=== PATIENT | male | born 1985 | race Hispanic/Latino ===

== ENCOUNTER 2018-01-04 10:00 | Emergency (ER) | payer SELFPAY ==
[2018-01-04] MEDS ORDERED: ACETAMINOPHEN 325 MG TAB ONE (10:19)
[2018-01-04] MEDS ORDERED: IPRATROPIUM/ALBUTEROL SULFATE 3 ML SOLUTION IH ONE (10:34)
[2018-01-04 10:59] LABS: RAPID GROUP A STREP NEGATIVE (NEGATIVE)
== END 2018-01-04 11:14 | disposition home or self-care (01) ==
LOC: EDH 10:00
DX: J18.8 Other pneumonia, unspecified organism (principal); Z72.0 Tobacco use
CPT/HCPCS: 71046; 87804; 87880; 94640

== ENCOUNTER 2018-03-13 18:52 | Emergency (ER) | payer OTHER ==
[2018-03-13 20:13] LABS: BILIRUBIN,URINE Negative (NEGATIVE); COLOR,URINE Yellow (YELLOW); GLUCOSE, URINE (UA) 250 mg/dL (NEGATIVE); KETONES,URINE Trace mg/dL (NEGATIVE); LEUKOCYTE ESTERASE ,URINE Negative (NEGATIVE); NITRATE,URINE Negative (NEGATIVE); OCCULT BLOOD,URINE Negative (NEGATIVE); PROTEIN,URINE Negative (NEGATIVE)
[2018-03-13 20:14] LABS: APPEARANCE,URINE CLEAR (CLEAR)
[2018-03-13] MEDS ORDERED: KETOROLAC TROMETHAMINE 30MG/ML ONE (20:17)
[2018-03-13 20:24] LABS: BACTERIA,URINE Rare /HPF (None Seen); MUCUS,URINE Few LPF (None Seen); RBC,URINE 0-1 /HPF (0-1); SQUAMOUS EPITHELIAL CELL,UR Rare /HPF (0-2); WBC,URINE 0-1 /HPF (0-1)
[2018-03-13 20:40] LABS: BASOPHILS % (AUTO) 0.7 % (0.0-5.0); EOSINOPHILS % (AUTO) 0.7 % (0.0-8.0); HEMATOCRIT 47.5 % (42-54); LYMPHOCYTES % (AUTO) 26.4 % (21.0-51.0); MEAN CORPUSCULAR HEMOGLOBIN 31.9 pg (27.0-33.0); MEAN CORPUSCULAR HGB CONC 35.4 g/dL (32.0-36.0); MEAN CORPUSCULAR VOLUME 90.1 fL (79-99); NEUTROPHILS % (AUTO) 63.2 % (40.0-77.0); PLATELET COUNT (AUTO) 385 K/uL (130-400); RED BLOOD CELL COUNT(AUTO) 5.27 MIL/uL (4.50-6.20); RED CELL DISTRIBUTION WIDTH 13.3 % (11.0-15.5); WHITE BLOOD COUNT (AUTO) 9.8 K/uL (4.8-10.8)
[2018-03-13 20:55] LABS: POTASSIUM 3.8 mmol/L (3.5-5.1)
[2018-03-13 21:00] LABS: ALBUMIN 3.7 g/dL (3.5-5.0); BILIRUBIN,TOTAL 0.4 mg/dL (0.2-1.0)
[2018-03-13 21:15] LABS: TOTAL PROTEIN, SERUM 7.4 g/dL (6.0-8.3)
== END 2018-03-13 22:02 | disposition home or self-care (01) ==
LOC: EDH 18:52
DX: R10.32 Left lower quadrant pain (principal); K59.00 Constipation, unspecified; K21.9 Gastro-esophageal reflux disease without esophagitis
CPT/HCPCS: 36415; 74018; 80053; 81001; 85025; 96374; 99284; J1885

== ENCOUNTER 2018-10-18 20:24 | Emergency (ER) | payer OTHER ==
[2018-10-18 21:28] LABS: BASOPHILS % (AUTO) 0.4 % (0.0-5.0); EOSINOPHILS % (AUTO) 0.1 % (0.0-8.0); HEMATOCRIT 46.5 % (42-54); LYMPHOCYTES % (AUTO) 17.6 % (21.0-51.0); MEAN CORPUSCULAR HEMOGLOBIN 30.8 pg (27.0-33.0); MEAN CORPUSCULAR HGB CONC 34.5 g/dL (32.0-36.0); MEAN CORPUSCULAR VOLUME 89.2 fL (79-99); MONOCYTES % (AUTO) 5.8 % (3.0-13.0); NEUTROPHILS % (AUTO) 76.1 % (40.0-77.0); PLATELET COUNT (AUTO) 359 K/uL (130-400); RED BLOOD CELL COUNT(AUTO) 5.22 MIL/uL (4.50-6.20); RED CELL DISTRIBUTION WIDTH 13.4 % (11.0-15.5); WHITE BLOOD COUNT (AUTO) 12.1 K/uL (4.8-10.8)
[2018-10-18 21:40] LABS: CARBON DIOXIDE 27 mmol/L (21-32); CHLORIDE 103 mmol/L (101-111); CREATININE 1.2 mg/dL (0.5-1.5); GLOMERULAR FILTR. RATE CALC 74 mL/min (>60); GLUCOSE,RANDOM 105 mg/dL (70-105); POTASSIUM 3.6 mmol/L (3.5-5.1); SODIUM SERUM 139 mmol/L (136-145); UREA NITROGEN, BLOOD 13 mg/dL (7-18)
[2018-10-18 21:44] LABS: ALANINE AMINOTRANSFERASE 48 U/L (12-78); ALBUMIN 4.2 g/dL (3.5-5.0); ALCOHOL, BLOOD < 3 mg/dL (0-10); AMYLASE 43 U/L (25-115); ASPARTATE AMINOTRANSFERASE 25 U/L (10-37); BILIRUBIN,TOTAL 0.3 mg/dL (0.2-1.0); CREATINE KINASE, TOTAL 217 U/L (21-232); LIPASE 87 U/L (114-286); TOTAL PROTEIN, SERUM 7.7 g/dL (6.0-8.3)
[2018-10-18 21:46] LABS: INR 0.96 (0.85-1.15); PARTIAL THROMBOPLASTIN TIME 29.6 SEC (26.3-35.5); PROTHROMBIN TIME 10.1 SEC (9.6-11.6)
[2018-10-18] MEDS ORDERED: LEVOFLOXACIN 500 MG TABLET ONE (22:03)
[2018-10-18] MEDS ORDERED: METRONIDAZOLE 500MG/100ML BAG 100 ML ONE (22:03)
[2018-10-18] MEDS ORDERED: KETOROLAC TROMETHAMINE 30MG/ML ONE (22:03)
[2018-10-18] MEDS ORDERED: SODIUM CHLORIDE 0.9% 1000ML 1,000 ML IV ONE (22:04)
[2018-10-18 22:10] LABS: APPEARANCE,URINE Clear (CLEAR); BILIRUBIN,URINE Negative (NEGATIVE); COLOR,URINE Yellow (YELLOW); GLUCOSE, URINE (UA) Negative (NEGATIVE); KETONES,URINE Negative (NEGATIVE); LEUKOCYTE ESTERASE ,URINE Negative (NEGATIVE); NITRATE,URINE Negative (NEGATIVE); OCCULT BLOOD,URINE Negative (NEGATIVE); PH,URINE 6.5 (5.0-8.0); PROTEIN,URINE Negative (NEGATIVE); UROBILINOGEN,URINE 0.2 mg/dL (0.2-1.0)
[2018-10-18 22:17] LABS: AMPHET/METH SCREEN,URINE NEGATIVE (NEGATIVE); BARBITURATE SCREEN, URINE NEGATIVE (NEGATIVE); BENZODIAZEPINES SCREEN,URINE POSITIVE (NEGATIVE); CANNABINOID SCREEN,URINE NEGATIVE (NEGATIVE); COCAINE SCREEN,URINE POSITIVE (NEGATIVE); OPIATE SCREEN,URINE NEGATIVE (NEGATIVE); PHENCYCLIDINE SCREEN,URINE NEGATIVE (NEGATIVE)
[2018-10-18] MEDS ORDERED: METRONIDAZOLE 500 MG TABLET ONE (23:26)
== END 2018-10-18 23:39 | disposition home or self-care (01) ==
LOC: EDH 20:24
DX: K57.32 Diverticulitis of large intestine without perforation or abscess without bleeding (principal); R03.0 Elevated blood-pressure reading, without diagnosis of hypertension; K21.9 Gastro-esophageal reflux disease without esophagitis; Z72.0 Tobacco use
CPT/HCPCS: 36415; 74176; 80053; 80305; 81003; 82150; 82270; 82550; 83690; 85025; 85610; 85730; 93005; 96365; 96375; 99285; G0480; J1885; J3490; J7030

== ENCOUNTER 2019-05-06 11:43 | Emergency (ER) | payer SELFPAY ==
[2019-05-06] MEDS ORDERED: SODIUM CHLORIDE 0.9% 1000ML 1,000 ML IV ONE (13:05)
[2019-05-06] MEDS ORDERED: KETOROLAC TROMETHAMINE 30MG/ML ONE (13:05)
[2019-05-06 13:06] LABS: BASOPHILS % (AUTO) 0.7 % (0.0-5.0); HEMATOCRIT 46.9 % (42-54); LYMPHOCYTES % (AUTO) 35.4 % (21.0-51.0); MEAN CORPUSCULAR VOLUME 90.9 fL (79-99); NEUTROPHILS % (AUTO) 51.5 % (40.0-77.0); PLATELET COUNT (AUTO) 517 K/uL (130-400); RED BLOOD CELL COUNT(AUTO) 5.16 MIL/uL (4.50-6.20); WHITE BLOOD COUNT (AUTO) 8.2 K/uL (4.8-10.8)
[2019-05-06] MEDS ORDERED: IOHEXOL-350 50ML VIAL IV ONE (13:30)
[2019-05-06 13:56] LABS: CREATININE 1.1 mg/dL (0.5-1.5); POTASSIUM 3.7 mmol/L (3.5-5.1)
== END 2019-05-06 14:27 | disposition home or self-care (01) ==
LOC: EDH 11:43
DX: R51 Headache (principal); K21.9 Gastro-esophageal reflux disease without esophagitis; Z72.0 Tobacco use
CPT/HCPCS: 36415; 70450; 70487; 80048; 85025; 96374; 99285; J1885; J7030; Q9967

== ENCOUNTER 2022-04-10 12:40 | Emergency (ER) | payer OTHER ==
[~2022-04-10] VITALS: Ht 167.6 cm; Wt 86.2 kg
[2022-04-10 13:59] LABS: BASOPHILS % (AUTO) 0.6 % (0.0-5.0); EOSINOPHILS % (AUTO) 1.5 % (0.0-8.0); HEMATOCRIT 49.4 % (42-54); MEAN CORPUSCULAR HGB CONC 34.2 g/dL (32.0-36.0); MEAN CORPUSCULAR VOLUME 87.7 fL (79-99); MONOCYTES % (AUTO) 8.2 % (3.0-13.0); NEUTROPHILS % (AUTO) 67.4 % (40.0-77.0); PLATELET COUNT (AUTO) 349 K/uL (130-400); RED BLOOD CELL COUNT(AUTO) 5.63 MIL/uL (4.50-6.20); RED CELL DISTRIBUTION WIDTH 13.1 % (11.0-15.5); WHITE BLOOD COUNT (AUTO) 6.7 K/uL (4.8-10.8)
[2022-04-10 14:16] LABS: CREATININE 1.1 mg/dL (0.5-1.5); POTASSIUM 4.3 mmol/L (3.5-5.1)
[2022-04-10 14:21] LABS: ALBUMIN 3.9 g/dL (3.5-5.0); TOTAL PROTEIN, SERUM 7.9 g/dL (6.0-8.3)
[2022-04-10] MEDS ORDERED: ZOSYN 3.375GM +NS 50ML IVPB ONE ×2 (16:00→16:30)
[2022-04-10] MEDS ORDERED: DIPHENHYDRAMINE HCL 25 MG CAPSULE PO ONE (17:00)
[2022-04-10 17:07] VITALS: BP 144/61
== END 2022-04-10 18:05 | disposition home or self-care (01) ==
LOC: EDH 12:40
DX: R03.0 Elevated blood-pressure reading, without diagnosis of hypertension (principal); J06.9 Acute upper respiratory infection, unspecified; Z20.822 Contact with and (suspected) exposure to COVID-19
CPT/HCPCS: 99284; 87635; 84484 ×2; 80053; 85025; 87804 ×2; 36415; 93005 ×2; Q0163; C9803

== ENCOUNTER 2024-01-25 00:14 | Emergency (ER) | payer SELFPAY ==
[~2024-01-25] VITALS: Ht 165.1 cm; Wt 86.2 kg
[2024-01-25 00:15] VITALS: BP 138/81; PULSE 69; RESP 18; TEMP 98.4
[2024-01-25 00:48] LABS: CREATININE 1.1 mg/dL (0.5-1.3); POTASSIUM 4.5 mmol/L (3.5-5.1)
[2024-01-25 00:51] LABS: BASOPHILS # (AUTO) 0.05 K/uL (0.00-0.20); BASOPHILS % (AUTO) 0.5 % (0.0-5.0); EOSINOPHILS # (AUTO) 0.07 K/uL (0.00-0.70); EOSINOPHILS % (AUTO) 0.7 % (0.0-8.0); HEMATOCRIT 47.7 % (42-54); IMMATURE GRANULOCYTE ABSOLUTE 0.04 K/uL (0-1); LYMPHOCYTES # (AUTO) 2.8 K/uL (1.0-4.8); LYMPHOCYTES % (AUTO) 27.5 % (21.0-51.0); MEAN CORPUSCULAR HEMOGLOBIN 30.7 pg (27.0-33.0); MEAN CORPUSCULAR HGB CONC 34.4 g/dL (32.0-36.0); MEAN CORPUSCULAR VOLUME 89.2 fL (79-99); MONOCYTES # (AUTO) 0.8 K/uL (0.1-1.0); MONOCYTES % (AUTO) 7.9 % (3.0-13.0); NEUTROPHILS # (AUTO) 6.3 K/uL (1.8-7.7); PLATELET COUNT (AUTO) 379 K/uL (130-400); RED BLOOD CELL COUNT(AUTO) 5.35 MIL/uL (4.50-6.20); WHITE BLOOD COUNT (AUTO) 10.1 K/uL (4.8-10.8)
[2024-01-25 00:52] LABS: ALBUMIN 3.8 g/dL (3.5-5.0); BILIRUBIN,TOTAL 0.2 mg/dL (0.2-1.0); TOTAL PROTEIN, SERUM 7.6 g/dL (6.0-8.3)
[2024-01-25] MEDS ORDERED: IOHEXOL 350 MG/ML 100ML INFUS..BTL IV ONE (01:45)
[2024-01-25 02:03] LABS: APPEARANCE,URINE CLEAR (CLEAR); BILIRUBIN,URINE NEGATIVE (NEGATIVE); COLOR,URINE LIGHT-YELLOW (YELLOW); GLUCOSE, URINE (UA) NEGATIVE (NEGATIVE); KETONES,URINE NEGATIVE (NEGATIVE); LEUKOCYTE ESTERASE ,URINE NEGATIVE Leu/uL (NEGATIVE); NITRATE,URINE NEGATIVE (NEGATIVE); OCCULT BLOOD,URINE NEGATIVE (NEGATIVE); PROTEIN,URINE NEGATIVE (NEGATIVE); UROBILINOGEN,URINE 0.2 mg/dL (0.2-1.0)
[2024-01-25 02:06] LABS: ADD UA MICROSCOPIC NO
[2024-01-25] MEDS: ketOROlac 15MG/ML VIAL (15MG/ML) IV ONE (02:31)
[2024-01-25] MEDS ORDERED: LACT-451 PO (03:18)
[2024-01-25] MEDS ORDERED: AMOX1TAB16 PO (03:18)
--- NOTE | 2024-01-25 03:19 | ERN ---
General Chief Complaint: Abdominal Pain Stated Complaint: C/O ABD PAIN TO LEFT SIDE X 4 DAYS Time Seen by MD: 00:25 Time Seen by Midlevel: 00:25 Source: patient History of Present Illness Initial Comments 38-year-old male who presents to the ED due to abdominal pain onset four days. Patient reports pain is to the left side, denies any fever, nausea, vomiting, diarrhea or further associated symptoms. Reports that last bowel movement was yesterday, but states it was not a full bowel movement and felt like he struggled little bit. PMHx umbilical hernia Allergies: Coded Allergies: No Known Drug Allergies (Verified Allergy, Unknown, 08/01/13) Home Meds Active Scripts Lactulose (Lactulose) 10 Gram/15 Ml (15 Ml) Solution, 15 ML PO DAILY for constipation for 7 Days, #105 ML 0 Refills Prov:ESSENCE DIEHL 01/25/24 Amoxicillin/Potassium Clav (Amox Tr-K Clv 875-125 mg Tab) 875 Mg-125 Mg Tablet, 1 EACH PO BID for 7 Days, #14 TAB 0 Refills Prov:ESSENCE DIEHL 01/25/24 Past Medical History Past Medical History: Hypertension Past Surgical History: None ROS Dictation Constitutional: Negative for fever,chills, and weight loss Eyes: Negative for injury, pain,redness, and discharge ENT: Negative for injury,pain or swelling Cardiovascular: Negative for chest pain, palpitations, and edema Respiratory: Negative for shortness of breath, cough, and wheezing, Abdomen/GI: Positive for abdominal pain Negative for nausea, vomiting, diarrhea, and constipation Back: Negative for injury and pain : Negative for injury, bleeding and discharge MS/Extremity: Negative for injury and deformity Skin: Negative for rash, and discoloration Neuro: Negative for headache, weakness, numbness, tingling, and seizure Psych: Negative for suicide ideation, homicidal ideation, and hallucinations Physical Exam Physical Exam Dictation General: awake, alert, no acute distress Head/Face: Normocephalic, atraumatic Eyes: normal conjunctiva ENT: oral mucosa moist Neck: Normal range of motion, supple Cardiovascular: RRR, normal S1/S2 Abdomen: Soft, non-tender, non-distended, normal bowel sounds, no guarding or rebound, small reducible umbilical hernia Skin: Warm, dry, normal turgor, no rash MS/Extremity: Pulses equal, no cyanosis, neurovascular intact, FROM Neuro: COAx4, GCS 15, no neurological deficits, normal gait Psych: Normal behavior, mood, and affect normal Results Laboratory and Microbiology Lab and Micro Result Laboratory Tests Test 01/25/24 00:33 01/25/24 01:45 White Blood Count 10.1 K/uL (4.8-10.8) Red Blood Count 5.35 MIL/uL (4.50-6.20) Hemoglobin 16.4 g/dL (14.0-18.0) Hematocrit 47.7 % (42-54) Mean Corpuscular Volume 89.2 fL (79-99) Mean Corpuscular Hemoglobin 30.7 pg (27.0-33.0) Mean Corpuscular Hemoglobin Concent 34.4 g/dL (32.0-36.0) Red Cell Distribution Width 13.0 % (11.0-15.5) Platelet Count 379 K/uL (130-400) Mean Platelet Volume 8.8 fL (7.5-10.5) Immature Granulocyte % (Auto) 0.4 % (0-1) Neutrophils (%) (Auto) 63.0 % (40.0-77.0) Lymphocytes (%) (Auto) 27.5 % (21.0-51.0) Monocytes (%) (Auto) 7.9 % (3.0-13.0) Eosinophils (%) (Auto) 0.7 % (0.0-8.0) Basophils (%) (Auto) 0.5 % (0.0-5.0) Neutrophils # (Auto) 6.3 K/uL (1.8-7.7) Lymphocytes # (Auto) 2.8 K/uL (1.0-4.8) Monocytes # (Auto) 0.8 K/uL (0.1-1.0) Eosinophils # (Auto) 0.07 K/uL (0.00-0.70) Basophils # (Auto) 0.05 K/uL (0.00-0.20) Absolute Immature Granulocyte (auto 0.04 K/uL (0-1) Nucleated Red Blood Cells 0.0 % (0.0-0.19) Sodium Level 142 mmol/L (136-145) Potassium Level 4.5 mmol/L (3.5-5.1) Chloride Level 104 mmol/L (101-111) Carbon Dioxide Level 32 mmol/L (21-32) Blood Urea Nitrogen 13 mg/dL (7-18) Creatinine 1.1 mg/dL (0.5-1.3) Glomerular Filtration Rate Calc 87 mL/min (>90) Random Glucose 110 mg/dL (70-105) H Total Calcium 9.2 mg/dL (8.5-10.1) Total Bilirubin 0.2 mg/dL (0.2-1.0) Aspartate Amino Transf (AST/SGOT) 19 U/L (10-37) Alanine Aminotransferase (ALT/SGPT) 40 U/L (12-78) Alkaline Phosphatase 97 U/L (50-136) Total Protein 7.6 g/dL (6.0-8.3) Albumin 3.8 g/dL (3.5-5.0) Lipase 36 U/L (16-77) Urine Color LIGHT-YELLOW (YELLOW) Urine Appearance CLEAR (CLEAR) Urine pH 6.0 (5.0-8.0) Urine Specific [place] 1.020 (1.001-1.031) Urine Protein NEGATIVE mg/dL (NEGATIVE) Urine Glucose (UA) NEGATIVE mg/dL (NEGATIVE) Urine Ketones NEGATIVE mg/dL (NEGATIVE) Urine Occult Blood NEGATIVE (NEGATIVE) Urine Nitrate NEGATIVE (NEGATIVE) Urine Bilirubin NEGATIVE mg/dL (NEGATIVE) Urine Urobilinogen 0.2 mg/dL (0.2-1.0) Urine Leukocyte Esterase NEGATIVE Lg/uL Labs Reviewed?: Yes MDM MDM: Differential diagnosis: Constipation, diverticulitis, abdominal pain Rationale: 38-year-old male who presents to the ED due to abdominal pain onset four days. Patient reports pain is to the left side, denies any fever, nausea, vomiting, diarrhea or further associated symptoms. Reports that last bowel movement was yesterday, but states it was not a full bowel movement and felt like he struggled little bit. Denies any significant past medical history. Labs obtained are nonspecific. CT abdomen and pelvis indicates small fat containing umbilical hernia. Moderate colonic diverticulosis, circumferential wall thickening associated with diverticula, surrounded by small amount of mesenteric inflammation characteristics of early diverticulitis with no perforations or abscesses noted. Per clinical diagnosis of constipation therefore lactulose was prescribed for outpatient treatment. Due to CT findings, and constipation antibiotics were prescribed for treatment of the early diverticulitis. Patient was educated on findings and diagnosis. Advised to follow up with PCP. Return to the ED if any worsening symptoms. Patient and partner verbalized understanding. Patient stable for discharge. There are no social concerns with this patient. I independently interpreted the test that were performed, results were reviewed by me and considered findings on radiology if ordered. Medical management and examination interpretation discussions were had by me with other qualified healthcare professionals as indicated for the patient's care. ED Course Orders Procedure Category Date Status Time Cbc With Differential LAB 01/25/24 Complete 00:25 Comprehensive LAB 01/25/24 Complete Metabolic Panel 00:25 Urinalysis Profile LAB 01/25/24 Complete 00:25 Lipase LAB 01/25/24 Complete 00:25 Ct Abdomen/Pelvis CT 01/25/24 Taken W/Contrast 01:22 Iohexol (Omnipaque) PHA 01/25/24 Complete 01:45 Ketorolac PHA 01/25/24 Complete Tromethamine 15mg/Ml 02:30 Current Medications Medications (Trade) Dose Ordered Sig/Sabi Route PRN Reason Start Time Stop Time Status Last Admin Dose Admin Iohexol (Omnipaque) 35,000 mg STK-MED ONCE IV 01/25/24 01:45 01/25/24 01:45 DC Ketorolac Tromethamine (toRADol) 15 mg ONCE ONCE IV 01/25/24 02:30 01/25/24 02:31 DC 01/25/24 02:31 Vital Signs Date Time Temp Pulse Resp B/P (MAP) Pulse Ox O2 Delivery O2 Flow Rate FiO2 01/25/24 00:15 98.4 69 18 138/81 98 Room Air DX & DISP Disposition: Discharge Departure Impression: Primary Impression: Constipation Additional Impressions: Diverticulosis, Diverticulitis Condition: Stable Scripts Lactulose (Lactulose) 10 Gram/15 Ml (15 Ml) Solution 15 ML PO DAILY for constipation for 7 Days, #105 ML 0 Refills Prov: ESSENCE DIEHL 01/25/24 Amoxicillin/Potassium Clav (Amox Tr-K Clv 875-125 mg Tab) 875 Mg-125 Mg Tablet 1 EACH PO BID for 7 Days, #14 TAB 0 Refills Prov: ESSENCE DIEHL 01/25/24 Additional Instructions: Discharge home. Rest. Follow up with primary care in 24 hours. Return to the ER for any acute changes or worsening symptoms. If any medications were prescribed take as directed. Okay to continue home medications unless otherwise discussed during your visit in the emergency room today. Patient was also advised to follow-up with primary care physician in 1 to 2 days for continued monitoring. Referrals: ELLY BARAJAS GEOLOGICAL ENGINEER (PCP) I participated in the following activities of this patient's care: For this patient encounter, I reviewed the PA or GEOLOGICAL ENGINEER documentation, treatment plan, and medical decision making. I did not have [id number] time with this patient. I will sign as the reviewing DrVitaliy And agree with the treatment plan and disposition. ESSENCE DIEHL Jan 25, 2024 03:19
--- NOTE | 2024-01-25 08:21 | HMCIMG ---
CT ABDOMEN/PELVIS W/CONTRAST REASON: Pain COMPARISON: 10/18/2018 TECHNIQUE: Images are obtained from lung bases to symphysis pubis following IV contrast, 100 cc Omnipaque 350. FINDINGS: Lung bases are clear. There are no focal liver lesions. There are normal-appearing kidneys.. Spleen and pancreas appear unremarkable. The gallbladder appears normal as well. There is marked sigmoid diverticulosis. There is a focal area of the proximal sigmoid with some wall thickening and mild adjacent edema consistent with early or mild diverticulitis. There is no evidence of abscess or perforation. There is no evidence of obstruction. Small bowel loops appear normal. The appendix appears unremarkable. There is no evidence of free fluid or intraperitoneal air. There are no focal fluid collections. Aorta and retroperitoneum appear normal as do pelvic soft tissue structures. The anterior abdominal wall is intact. Osseous structures appear unremarkable. IMPRESSION: 1. Severe sigmoid diverticulosis, there is mild inflammation in the proximal sigmoid colon consistent with early or mild diverticulitis, there is no evidence of abscess or perforation. 2. Otherwise unremarkable postcontrast CT abdomen and pelvis. CT was performed with one or more following dose reduction techniques: automated exposure control, adjustment of the mA and kv according to patient's size, or use of a iterative reconstruction technique.
== END 2024-01-25 03:43 | disposition home or self-care (01) ==
LOC: EDH 00:14
DX: K59.00 Constipation, unspecified (principal); K57.32 Diverticulitis of large intestine without perforation or abscess without bleeding; K57.30 Diverticulosis of large intestine without perforation or abscess without bleeding; I10 Essential (primary) hypertension; Z79.899 Other long term (current) drug therapy
CPT/HCPCS: 99285; 74177; 96374; 80053; 83690; 85025; 81003; 36415; J1885; Q9967